=== PATIENT | female | born 1965 | race Caucasian/White ===

== ENCOUNTER 2020-09-26 | Emergency (ER) | payer BC ==
--- OUTSIDE RECORDS SUMMARY | 2020-09-26 13:57 | XMS REPORT | Summary of Care ---
:1965 Author Organization [facility] - [facility] Address [address] [place] [address] Care Team Providers Name Role Phone Pcp, Patient Does Not Have A Primary Care Provider +1-000-00 0-0000 Encounter Details Date Type Department Care Team Description 09/20/2020 Letter (Out) [facility] [address] Message s Doctor Unassigned, No [address] [facility] [place] [phone] [facility] [phone] [place] [address] Allergies Not on Filedocumented as of this encounter (statuses as of 09/20/2020) Medications Not on filedocumented as of this encounter (statuses as of 09/20/2020) Active Problems Not on filedocumented as of this encounter (statuses as of 09/20/2020) Social History Tobacco Use Types Packs/Day Years Used Date Never Assessed Sex Assigned at Date Recorded Not on file documented as of this encounter Last Filed Vital Signs Not on filedocumented in this encounter Plan of Treatment Date Type Specialty Care Team Description 09/20/2020 Urgent Care Family Medicine Milli Feliz, FN [address] [facility] [address] [place] [address] [phone] Arrived Provider, [facility] Health Maintenance Due Date Last Done Comments HEPATITIS C (HCV) SCREEN 1965 Depression Screening 1975 DTaP,Tdap,and Td Vaccines (1 - 1982 Tdap) PAP SMEAR 1984 Breast Cancer Screening (MAMMOGRAM) 2003 COLON CANCER SCREENING ANNUAL 2013 FIT/FOBT COLON CANCER SCREENING FIT DNA 2013 EVERY 3 YEARS COLON CANCER SCREENING 2013 SIGMOIDOSCOPY EVERY 5 YEARS COLONOSCOPY 2013 Colorectal Cancer Screening 2013 Zoster Recombinant Vaccine 2013 (SHINGRIX) (1 of 2) INFLUENZA VACCINE (#1) 2020 PNEUMOCOCCAL 0-64 YEARS COMBINED Aged Out No longer eligible based on SERIES patient's age to complete this topic documented as of this encounter Results Not on filedocumented in this encounter Insurance Payer Benefit Plan Subscriber ID Effective Dates Phone Address Type / Group BCBS OF [facility] [id number] 2020-Pres [phone] [address] P[place] [id number] [place] [address] documented as of this encounter
--- OUTSIDE RECORDS SUMMARY | 2020-09-26 13:57 | XMS REPORT | Continuity of Care Document ---
:1965 Author Organization [facility] t Address [address] [place] [address] Care Team Providers Name Role Phone Gama DURHAM, H Attending Clinician Pcp, Does Not Have A Attending Clinician Provider, Urgent Care Attending Clinician Unavailable Doctor Unassigned, Name Attending Clinician Unavailable Problems This patient has no known problems. Allergies, Adverse Reactions, Alerts This patient has no known allergies or adverse reactions. Medications This patient has no known medications. Procedures This patient has no known procedures. Encounters Start End Encounter Admission Attending Care Care Encounter Source Date/Time Date/Time Type Type Clinicians Facility Department ID 2020-09-24 2020-09-24 Letter GARO Malloy [id number] 00:00:00 00:00:00 (Out) Robert SEXTON [id number] [facility] [id number] 2020-09-22 2020-09-22 Telephone Pcp, [facility] [id number] 00:00:00 00:00:00 Patient Health [id number] Does Not [place] [id number] Have A Professio [phone] nal [address] 2020-09-20 2020-09-20 Urgent Provider, [facility] [id number] 09:36:00 10:22:03 Care [facility] [id number] Care [place] [id number] Professio [phone] nal [address] 2020-09-20 2020-09-20 Letter Doctor GARO [id number] 00:00:00 00:00:00 (Out) Unassigned, CARLIE [id number] [place] [facility] [id number] [id number] Results This patient has no known results.
--- OUTSIDE RECORDS SUMMARY | 2020-09-26 13:57 | XMS REPORT | Summary of Care ---
:1965 Author Organization [facility] - [facility] Address [address] [place] [address] Care Team Providers Name Role Phone Pcp, Patient Does Not Have A Primary Care Provider +1-000-00 0-0000 Reason for Visit Reason Comments Results Encounter Details Date Type Department Care Team Description 09/22/2020 Telephone [facility] Family Medicine Pcp, Patient Does Not Results - Johnathan Have A [address] [place] [address] Dr [address] [place] [address] [place] [address] Allergies No Known Allergiesdocumented as of this encounter (statuses as of 09/22/2020) Medications Medication Sig Dispensed Refills Start Date End Date Status amoxicillin-clavulana Take 1 tablet by 14 tablet 0 09/20/2020 09/27/2020 Active te 875-125 mg per mouth 2 (two) tabletIndications: times daily for 7 Acute non-recurrent days. maxillary sinusitis documented as of this encounter (statuses as of 09/22/2020) Active Problems No known active problemsdocumented as of this encounter (statuses as of 09/22/2020) Social History Tobacco Use Types Packs/Day Years Used Date Never Smoker Smokeless Tobacco: Never Used Sex Assigned at Date Recorded Not on file COVID-19 Exposure Response Date Recorded In the last month, have you been in contact with No / Unsure 09/20/2020 9:37 AM [employer] someone who was confirmed or suspected to have Coronavirus / COVID-19? documented as of this encounter Last Filed Vital Signs Not on filedocumented in this encounter Miscellaneous Notes Telephone Encounter - Brit Perez LVN - 09/22/2020 7:27 PM CSTLeft message to f/u with ortho. Gave number on VM. Can also F/U with PCP for further eval elephone Encounter - Chelo Leal - 09/22/2020 2:39 PM CSTPatient calling for covid results [phone] signed by Chelo Leal at 09/22/2020 2:39 PM CSTdocumented in this encounter Plan of Treatment Health Maintenance Due Date Last Done Comments [...] Phone Address Type / Group BCBS OF [facility] [id number] 2018-[place] [phone] [address] PPO/POS [place] [id number] [place] [address] documented as of this encounter
--- OUTSIDE RECORDS SUMMARY | 2020-09-26 13:57 | XMS REPORT | Summary of Care ---
:1965 Author Organization [facility] - [facility] Address [address] [place] [id number] Care Team Providers Name Role Phone Pcp, Patient Does Not Have A Primary Care Provider +[id number] 0-0000 Reason for Visit Reason Comments Headache 3 days RUNNY NOSE 3 days Encounter Details Date Type Department Care Team Description 09/20/2020 Urgent Care [facility] Milli Goldman, VISUAL EFFECTS ARTIST [address] [place] [address] [phone] Acute non-recurrent maxillary sinusitis (Primary Dx); Medicine - [place] Provider, [facility] Urgent Care Exposure to SARS-associated coronavirus [address] [place] [address] Allergies No Known Allergiesdocumented as of this encounter (statuses as of 09/20/2020) Medications Medication Sig Dispensed Refills Start Date End Date Status amoxicillin-clavulana Take 1 tablet by 14 tablet 0 09/20/2020 09/27/2020 Active te 875-125 mg per mouth 2 (two) tabletIndications: times daily for 7 Acute non-recurrent days. maxillary sinusitis documented as of this encounter (statuses as of 09/20/2020) Active Problems No known active problemsdocumented as of this encounter (statuses as of 09/20/2020) Social History Tobacco Use Types Packs/Day Years Used Date Never Smoker Smokeless Tobacco: Never Used Sex Assigned at Date Recorded Not on file COVID-19 Exposure Response Date Recorded In the last month, have you been in contact with No / Unsure 09/20/2020 9:37 AM [employer] someone who was confirmed or suspected to have Coronavirus / COVID-19? 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 Acute non- recurrent maxillary sinusitis - amoxicillin-clavulanate 875-125 mg per tablet; Take 1 tablet by mouth 2 (two) times daily for 7 days. Dispense: 14 tablet; Refill: 0 - counseled patient about at home care: Rest Raise head of bed Increase fluids -HYDRATION WITH CLEAR LIQUIDS Warm salt water gargles or CEPACOL sprays for sore throat. Breath humidified air (steam) SIPPING WARM DRINKS may help. Warm Compresses (if sinus pressure or pain). HAND HYGIENE (with alcohol gels or hand washing) Advised to take Tylenol or Ibuprofen as per label recommendation as needed for pain or fever Avoidance of cigarette smoke, alcoholic drinks, diving into deep water and air travel is useful. Irrigate your nose with normal saline moisture spray 2 or 3 times a day. You may use a spray, squeeze bottle, or nasal pot. Nasal Congestion (Stopped Up): Oxymetazoline HCl (Afrin, 4-Way, & more) 0.05 % nasal spray, 1 spray each nostril at bedtime. Limit to 5 nights. If use twice a day then limit to 3 days. - Advised to follow up with PCP, return to Urgent Care, or go to the nearest Emergency Department sooner for any new, worsening, persistent, or concerning symptoms 2. Exposure to SARS-associated coronavirus - COVID-19 (MOLECULAR TESTING NUCLEIC ACID AMPLIFICATION) - Quarantine until your COVID results are back Criteria met - Covid testing - pending. This test can take 2-3 days to be resulted. While the test is pending...Please socially isolate your self - do not go out to stores or out in public. We will contact you once we have the results. If you are negative - continue with symptomatic treatment. (see below) Patients who have positive results will be contacted by the health department to enforce quarantine measures and for additional community contact tracing. The Infection Control Department will also undertake evaluation of exposures in our healthcare facility. If symptoms worsen - please call your Primary Care Doctor - do not go into the clinic. Call first. Educated on the following at home care: - Discussed likely viral diagnosis and treatment plan with pt. - pt advised on frequent effective handwashing - pt advised to increase fluid intake , stay hydrated and get plenty of rest. - advised to have the pt take OTC to treat symptoms. - Pt advised to administer Tylenol as per label recommendation as needed for pain or fever - Cover mouth when coughing, wear mask - Stay in your own bedroom and use a separate bathroom - Keep at least 6 feet from you and others - Avoid sharing personal household items, dishes, glasses, cups, towels -Clean high traffic/touch areas daily. These include but not limited to: doorknobs, refrigerator/cabinet handles, phones, keyboards, tablets, light switches. - AVS and Written/handout materials appropriate to problem and teaching provided. - advised to go to the nearest Emergency Department sooner for any new, worsening, persistent, or concerning symptoms - Patient verbalized understanding of all instructions - Follow-up with PCP as needed, if no improvement EDUCATION: Handouts given: Patient educated on plan of care for visit, swabbing technique,risks and benefits of test and lengthof time to receive results. Verbal consent obtained to perform test. CDC Fact Sheet for patients nCoV Diagnostic Panel dated 12/15/2019 provided. "What to do if you are sick with COVID-19" CDC information guide reviewed with the patient and handout given to patient Education given to self quarantine until results are back. Will notify patient with results. Patient states understanding and all questions answered. Plan of care, goals and medications discussed with patient. Patient voices understanding. Barriers to care: none Ability to manage care: good FOLLOW UP: Pt advised to call 911 or go to the nearest Emergency Department sooner for any worsening, persistent, or concerning symptoms ER precautions given Plan of care, desired health behaviors, goals, and medication discussed with patient. Education resources provided and reviewed with AVS. Patient/guardian/family verbalized understanding & agrees to plan of care. Urgent Care precautions and follow up : 1. Return to clinic if your symptoms should worsen or fail to improve within 72 hours. 2. The care provided in the urgent care was for acute problems only. 3. You should follow up with your primary care provider within 72 hours. 4. Fill and take all your medications as prescribed. 5. Make sure you are staying adequately hydrated. MAY FOLLOW-UP WITH A PROVIDER OF YOUR CHOICE, SUCH : 1. A PHYSICIAN OF YOUR CHOICE OR, IF YOU WISH TO FOLLOW-UP WITHIN THE [facility], MAY TRY THESE OPTIONS (CLINIC APPOINTMENTS AVAILABLE ON BEXA-SY-JORK BASIS): 1. SCHEDULE AN APPOINTMENT ONLINE AT WWW[facility] 2. OR CALL THE [facility] ACCESS CENTER AT OR 3. OR CALL YOUR [facility] PHYSICIAN'S OFFICE DIRECTLY IF YOU ARE ALREADY AN ESTABLISHED [facility] PATIENT. After hours care nurse access center available by calling [phone] 24 hours 7 days per week. [facility] Patient Education Coronavirus Disease 2019 (COVID-19): Caring for Yourself and Others If you or a household member have symptoms of COVID-19, follow the guidelines below for preventing spread of the virus, and managing symptoms. If you think you have COVID-19 symptoms Stay home. Call your healthcare provider and tell them you have symptoms of COVID-19. Do this before going to any hospital or clinic. Follow your provider's instructions. You may be advised to isolate yourself at home. This is called self-isolation. Dont panic. Keep in mind that other illnesses can cause similar symptoms. Stay away from work, school, and public places. Limit physical contact with family members. Limitvisitors. Don't kiss anyone or share eating or drinking utensils. Clean surfaces you touch with disinfectant. This is to help prevent the virus from spreading. If you need to cough or sneeze, do it into a tissue. Then throw the tissue into the trash. If youdon't have tissues, cough or sneeze into the bend of your elbow. Dont share food or personal items with people in your household. This includes items like eating and drinking utensils, towels, and bedding. Wear a cloth face mask around other people. During a public health emergency, medical face masks may be reserved for healthcare workers. You may need to make a cloth face mask of your own. You can do this using a bandana, T-shirt, or other cloth. The [facility] has instructions on how to make a face mask.Wear the mask so that it covers both your nose and mouth. If you need to go to a hospital or clinic, expect that the healthcare staff will wear protective equipment such as masks, gowns, gloves, and eye protection. You may be put in a separate room. This is to prevent the possible virus from spreading. Tell the healthcare staff about recent travel. This includes local travel on public transport. Staff may need to find other people you have been in contact with. Follow all instructions the healthcare staff give you. If you have been diagnosed with COVID-19 Stay home and start self-isolation. Dont leave your home unless you need to get medical care. Don't go to work, school, or public areas. Don't use public transportation or taxis. Follow all instructions from your healthcare provider. Call your healthcare providers office before going. They can prepare and give you instructions. This will help prevent the virus from spreading. If you need to go to a hospital or clinic, expect that the healthcare staff will wear protective equipment such as masks, gowns, gloves, and eye protection. You may be put in a separate room. This is to prevent the possible virus from spreading. Wear a face mask. This is to protect other people from your germs. If you are not able to wear a mask, your caregivers should. During a public health emergency, medical face masks may be reserved for healthcare workers. You may need to make a cloth face mask of your own. You can do this using a bandana, T- shirt, or other cloth. The [facility] has instructions on how to make a face mask. Wear the mask so that it covers both your nose and mouth. Stay away from other people in your home. Have no contact with pets and animals. Dont share food or personal items with people in your household. This includes items like eating and drinking utensils, towels, and bedding. If you need to cough or sneeze, do it into a tissue. Then throw the tissue into the trash. If youdon't have tissues, cough or sneeze into the bend of your elbow. Wash your hands often. Self-care at home There is currently no medicine approved to prevent or treat the virus. Some experimental and other medicines are being tested against COVID-19. Other medicines used to treat other conditions are being looked at for COVID-19, but they are not currently approved to treat it. Current treatment is mainly aimed at helping your body while it fights the virus. This is known as supportive care. Take care of yourself at home by: Getting rest. This helps your body fight the illness. Staying hydrated. Drinking liquids is the best way to prevent dehydration. Try to drink 6 to 8 glasses of liquids every day, or as advised by your provider. Also check with your provider about whichfluids are best for you. Don't drink fluids that contain caffeine or alcohol. Taking iqql-jxh-ukjmoza (OTC) pain medicine. These are used to help ease pain and reduce fever. Follow your healthcare provider's instructions for which OTC medicine to use. If you've been in the hospital for suspected or confirmed COVID-19 and now are home, follow all of your healthcare team's instructions. This will include when it's OK to stop self-isolation. You may also get instructions on position changes to help your breathing, such as lying on your belly (prone positioning). If you've had confirmed COVID-19, your healthcare team may ask you to consider donating your plasma.This is called COVID-19 convalescent plasma donation. Plasma from people fully recovered from COVID-19 may contain antibodies to help fight COVID-19 in people who are currently seriously ill with the disease. Experts don't know the safety of COVID-19 convalescent plasma or how well it works. Research continues. The FDA has approved it for emergency use in certain people with serious or life-threatening COVID-19. Caring for a sick person Follow all instructions from healthcare staff. Wash your hands often. Wear protective clothing as advised. Make sure the sick person wears a mask. If they can't wear a mask, don't stay in the same room with the person. If you must be in the same room, wear a face mask. When wearing a mask, make sure thatit covers both the nose and mouth. Keep track of the sick persons symptoms. Clean home surfaces often with disinfectant. This includes phones, kitchen counters, fridge door handle, bathroom surfaces, and others. Dont let anyone share household items with the sick person. This includes eating and drinking tools, towels, sheets, or blankets. Clean fabrics and laundry thoroughly. Keep other people and pets away from the sick person. When you can stop self-isolation When you are sick with COVID-19, you should stay away from other people. This is called self-isolation. Your limits are different if you've had COVID-19 in the last 3 months but are fully recovered without symptoms and you have been exposed to someone with COVID-19. If you are symptom-free, you don't need to stay home away from others or be retested. The CDC doesn't recommend retesting unless you have symptoms of COVID-19 and your new symptoms can't be linked to another illness. Contact your healthcareprovider if you have any questions. If you develop symptoms, stay home. If you had COVID-19 over 3 months ago and have been exposed again, treat it like you've never had COVID-19 and stay home, limit your contact with others, call your provider, and monitor for symptoms. If you are normally healthy, the CDC does not advise retesting for COVID-19 with nose-throat swabs. You can stop self-isolation when all 3 of these are true: 1. You have had no fever for at least 24 hours. This means no fever without medicine that reduces fever, such as acetaminophen, for at least 24 hours. 2. Your symptoms such as cough or trouble breathing have improved. 3. It has been at least 10 days since your first symptoms started. Talk with your healthcare provider before you leave home. Tell them if the 3 things above are true for you. They may tell you its OK to leave home. In some cases, your state or local area may have specific advice. Your healthcare provider will tell you more. If you have a weak immune system and COVID-19, or if you've had severe COVID-19, your instructions on when to stop isolation will be somewhat different. Some conditions and treatments can cause a weak immune system. These include cancer treatment, bone marrow or organ transplants, and conditions such as HIV or other immune system disorders. You may be advised to stay home from 10 days to 20 days after your symptoms first started. Your healthcare provider may want to retest you for COVID-19. Follow your provider's instructions. When you return to public settings When you are well enough to go outside your home, consider the CDC's guidance on cloth face masks: The CDC advises all people over age 2 to wear cloth face masks in public settings when around people outside of their household, especially when it's hard to socially distance. For example, wear a face mask in populated places such as public transit, public protests and marches, and crowded stores,bars, and restaurants. Cloth masks may help prevent people who have COVID-19 form spreading the virus to others. Cloth masks are most likely to reduce COVID-19 spread when masks are widely used by people who are out in the public. Certain people should not wear a face covering. This includes: Children younger than 2 years old Anyone with a health, developmental, or mental health condition that can be made worse by wearinga mask Anyone who is unconscious or unable to remove the face covering without help. See the CDC's guidance on who should not wear a face mask. When to call your healthcare provider Call your healthcare provider right away if a sick person has any of these: If a sick person has any of these, call 911: Trouble breathing that gets worse Pain or pressure in chest that gets worse Blue tint to lips or face Fast or irregular heartbeat Confusion or trouble waking Fainting or loss of consciousness Coughing up blood Going home from the hospital If you were diagnosed with COVID-19 and were recently discharged from the hospital: Follow the instructions above for self-care and isolation. Follow the hospital healthcare teams specific instructions. Ask questions if anything is unclear to you. Write down answers so you remember them. Date last modified: 05/27/2020 [employer] last reviewed this educational content on 01/01/202019994842-4844 The [employer]. All rights reserved. This information is not intended as a substitute for professional medical care. Always follow your healthcare professional's instructions. STATION SUPERVISOR documented in this encounter Progress Notes Milli Feliz FNP - 09/20/2020 9:40 AM CST Cc: Chief Complaint Patient presents with Headache 3 days RUNNY NOSE 3 days Milli Noel is a 55 year old female presents with concern for worsening runny nose/congestion and headache for about 3 days. Some cough. She's been having allergy symptoms for more than a week. She's had sinus infection twice before and this feels similar. Intermittent low grade fever, TMAX 99.5. She's taking zyrtec and Tylenol with little improvement. Denies any sick contacts. Eating/drinking good.Denies any chills or body aches. Sinus Problem Pain details: Location: Maxillary Quality: Aching, dull and pressure Severity: Moderate Duration: 3 days Timing: Intermittent Duration: 1 week Progression: Worsening Chronicity: New Context: recent URI Relieved by: Nothing Worsened by: Nothing Ineffective treatments: Saline sprays Associated symptoms: chills, congestion, cough, fatigue, fever, headaches, hoarse voice, mouth breathing, rhinorrhea and sneezing Associated symptoms: no nausea, no shortness of breath, no snoring, no sore throat, no swollen glands, no tooth pain, no vertigo, no vomiting and no wheezing Congestion: Location: Nasal Interferes with sleep: yes Interferes with eating/drinking: yes Cough: Cough characteristics: Dry Sputum characteristics: Clear Severity: Mild Onset quality: Sudden Duration: 1 week Timing: Intermittent Progression: Unchanged Chronicity: New Fatigue: Severity: Mild Duration: 3 days Timing: Intermittent Progression: Unchanged Fever: Duration: 2 days Timing: Intermittent Temp source: Subjective Progression: Unchanged Risk factors: no asthma, no COPD and no diabetes Allergies Milli has no allergies on file. Medications No outpatient medications prior to visit. No facility-administered medications prior to visit. Histories History reviewed. No pertinent past medical history. History reviewed. No pertinent surgical history. Social History Socioeconomic History Marital status: Spouse name: Not on file Number of children: Not on file Years of education: Not on file Highest education level: Not on file Occupational History Not on file Social Needs Financial resource strain: Not on file Food insecurity Worry: Not on file Inability: Not on file Transportation needs Medical: Not on file Non-medical: Not on file Tobacco Use Smoking status: Never Smoker Smokeless tobacco: Never Used Substance and Sexual Activity Alcohol use: Not on file Drug use: Not on file Sexual activity: Not on file Lifestyle Physical activity Days per week: Not on file Minutes per session: Not on file Stress: Not on file Relationships Social connections Talks on phone: Not on file Gets together: Not on file Attends baptist service: Not on file Active member of club or organization: Not on file Attends meetings of clubs or organizations: Not on file Relationship status: Not on file Intimate partner violence Fear of current or ex partner: Not on file Emotionally abused: Not on file Physically abused: Not on file Forced sexual activity: Not on file Other Topics Concern Not on file Social History Narrative Not on file History reviewed. No pertinent family history. Review of Systems Constitutional: Positive for chills, fatigue and fever. Negative for activity change and appetite change. HENT: Positive for congestion, hoarse voice, postnasal drip, rhinorrhea and sneezing. Negative for sore throat. Respiratory: Positive for cough. Negative for snoring, shortness of breath, wheezing and stridor. Gastrointestinal: Negative for diarrhea, nausea and vomiting. Musculoskeletal: Negative for myalgias. Skin: Negative for rash. Neurological: Positive for headaches. Negative for dizziness, vertigo and weakness. All other systems reviewed and are negative. Vital Signs BP (!) 157/84 | Pulse 64 | Temp 37 C (98.6 F) (Oral) | Resp 18 | Ht 5' 7" (1.702 m) | Wt 145 lb (65.8 kg) | SpO2 98% | BMI 22.71 kg/m Physical Exam Vitals signs and nursing note reviewed. Constitutional: Appearance: She is well-developed. HENT: Head: Normocephalic and atraumatic. Right Ear: Tympanic membrane, ear canal and external ear normal. Left Ear: Tympanic membrane, ear canal and external ear normal. Nose: Nasal tenderness, mucosal edema, congestion and rhinorrhea present. Right Sinus: Maxillary sinus tenderness present. No frontal sinus tenderness. Left Sinus: Maxillary sinus tenderness present. No frontal sinus tenderness. Eyes: Conjunctiva/sclera: Conjunctivae normal. Neck: Musculoskeletal: Normal range of motion and neck supple. Cardiovascular: Rate and Rhythm: Normal rate and regular rhythm. Heart sounds: Normal heart sounds. No murmur. No friction rub. No gallop. Pulmonary: Effort: Pulmonary effort is normal. No accessory muscle usage or respiratory distress. Breath sounds: Normal breath sounds. No decreased breath sounds, wheezing, rhonchi or rales. Musculoskeletal: Normal range of motion. Skin: General: Skin is warm and dry. Findings: No rash. Neurological: Mental Status: She is alert and oriented to person, place, and time. Psychiatric: Behavior: Behavior normal. Assessment/Plan Milli Noel is a 55 year old female presents with concern for runny nose and headache for about 3 days. 1. Acute non-recurrent maxillary sinusitis - amoxicillin-clavulanate 875-125 mg per tablet; Take 1 tablet by mouth 2 (two) times daily for 7 days. Dispense: 14 tablet; Refill: 0 - counseled patient about at home care: Rest Raise head of bed Increase fluids -HYDRATION WITH CLEAR LIQUIDS Warm salt water gargles or CEPACOL sprays for sore throat. Breath humidified air (steam) SIPPING WARM DRINKS may help. Warm Compresses (if sinus pressure or pain). HAND HYGIENE (with alcohol gels or hand washing) Advised to take Tylenol or Ibuprofen as per label recommendation as needed for pain or fever Avoidance of cigarette smoke, alcoholic drinks, diving into deep water and air travel is useful. Irrigate your nose with normal saline moisture spray 2 or 3 times a day. You may use a spray, squeeze bottle, or nasal pot. Nasal Congestion (Stopped Up): Oxymetazoline HCl (Afrin, 4-Way, & more) 0.05 % nasal spray, 1 spray each nostril at bedtime. Limit to 5 nights. If use twice a day then limit to 3 days. - Advised to follow up with PCP, return to Urgent Care, or go to the nearest Emergency Department sooner for any new, worsening, persistent, or concerning symptoms 2. Exposure to SARS-associated coronavirus - COVID-19 (MOLECULAR TESTING NUCLEIC ACID AMPLIFICATION) - Quarantine until your COVID results are back Criteria met - Covid testing - pending. This test can take 2-3 days to be resulted. While the test is pending...Please socially isolate your self - do not go out to stores or out in public. We will contact you once we have the results. If you are negative - continue with symptomatic treatment. (see below) Patients who have positive results will be contacted by the health department to enforce quarantine measures and for additional community contact tracing. The Infection Control Department will also undertake evaluation of exposures in our healthcare facility. If symptoms worsen - please call your Primary Care Doctor - do not go into the clinic. Call first. Educated on the following at home care: - Discussed likely viral diagnosis and treatment plan with pt. - pt advised on frequent effective handwashing - pt advised to increase fluid intake , stay hydrated and get plenty of rest. - advised to have the pt take OTC to treat symptoms. - Pt advised to administer Tylenol as per label recommendation as needed for pain or fever - Cover mouth when coughing, wear mask - Stay in your own bedroom and use a separate bathroom - Keep at least 6 feet from you and others - Avoid sharing personal household items, dishes, glasses, cups, towels -Clean high traffic/touch areas daily. These include but not limited to: doorknobs, refrigerator/cabinet handles, phones, keyboards, tablets, light switches. - AVS and Written/handout materials appropriate to problem and teaching provided. - advised to go to the nearest Emergency Department sooner for any new, worsening, persistent, or concerning symptoms - Patient verbalized understanding of all instructions - Follow-up with PCP as needed, if no improvement EDUCATION: Handouts given: Patient educated on plan of care for visit, swabbing technique,risks and benefits of test and lengthof time to receive results. Verbal consent obtained to perform test. CDC Fact Sheet for patients nCoV Diagnostic Panel dated 12/15/2019 provided. "What to do if you are sick with COVID-19" CDC information guide reviewed with the patient and handout given to patient Education given to self quarantine until results are back. Will notify patient with results. Patient states understanding and all questions answered. Plan of care, goals and medications discussed with patient. Patient voices understanding. Barriers to care: none Ability to manage care: good FOLLOW UP: Pt advised to call 911 or go to the nearest Emergency Department sooner for any worsening, persistent, or concerning symptoms ER precautions given Plan of care, desired health behaviors, goals, and medication discussed with patient. Education resources provided and reviewed with AVS. Patient/guardian/family verbalized understanding & agrees to plan of care. Urgent Care precautions and follow up : 1. Return to clinic if your symptoms should worsen or fail to improve within 72 hours. 2. The care provided in the urgent care was for acute problems only. 3. You should follow up with your primary care provider within 72 hours. 4. Fill and take all your medications as prescribed. 5. Make sure you are staying adequately hydrated. MAY FOLLOW-UP WITH A PROVIDER OF YOUR CHOICE, SUCH : 1. A PHYSICIAN OF YOUR CHOICE OR, IF YOU WISH TO FOLLOW-UP WITHIN THE [facility], MAY TRY THESE OPTIONS (CLINIC APPOINTMENTS AVAILABLE ON [id number] BASIS): 1. SCHEDULE AN APPOINTMENT ONLINE AT [email or web address] 2. OR CALL THE [facility] ACCESS CENTER AT OR 3. OR CALL YOUR [facility] PHYSICIAN'S OFFICE DIRECTLY IF YOU ARE ALREADY AN ESTABLISHED [facility] PATIENT. After hours care nurse access center available by calling [phone] 24 hours 7 days per week. [facility] documented in this encounter Plan of Treatment Name Type Priority Associated Diagnoses Order S pedrito COVID-19 (MOLECULAR LAB Routine Exposure to Expected : 09/20/2020, TESTING SARS-associated Expires: 021 NUCLEIC ACID coronavirus AMPLIFICATION) Health Maintenance Due Date Last Done Comments [...] Results Not on filedocumented in this encounter Visit Diagnoses Diagnosis Acute non-recurrent maxillary sinusitis - Primary Exposure to SARS-associated coronavirus documented in this encounter Additional Health Concerns Infection Onset Date Last Indicated Resolved Time COVID-19 Rule Out 09/20/2020 09/20/2020 documented as of this encounter Insurance Payer Benefit Plan Subscriber ID Effective Dates Phone Address Type / Group BCBS OF [facility] [id number] 2020-Pres [phone] [address] PPO/POS [place] ent [id number] [place] [address] documented as of this encounter
--- OUTSIDE RECORDS SUMMARY | 2020-09-26 13:57 | XMS REPORT | Summary of Care ---
:1965 Author Organization [facility] [place] Address [address] [place] [id number] Care Team Providers Name Role Phone Pcp, Patient Does Not Have A Primary Care Provider [id number] Encounter Details Date Type Department Care Team Description 09/24/2020 Letter (Out) ACCESS CENTER Robert Malloy MD [address] [place] [phone] [place], [place] [id number] Allergies No Known Allergiesdocumented as of this encounter (statuses as of 09/24/2020) Medications Medication Sig Dispensed Refills Start Date End Date Status amoxicillin-clavulana Take 1 tablet by 14 tablet 0 09/20/2020 09/27/2020 Active te 875-125 mg per mouth 2 (two) tabletIndications: times daily for 7 Acute non-recurrent days. maxillary sinusitis documented as of this encounter (statuses as of 09/24/2020) Active Problems No known active problemsdocumented as of this encounter (statuses as of 09/24/2020) Social History Tobacco Use Types Packs/Day Years Used Date Never Smoker Smokeless Tobacco: Never Used Sex Assigned at Date Recorded Not on file COVID-19 Exposure Response Date Recorded In the last month, have you been in contact with No / Unsure 09/20/2020 9:37 AM [employer] someone who was confirmed or suspected to have Coronavirus / COVID-19? documented as of this encounter Last Filed Vital Signs Not on filedocumented in this encounter Plan of Treatment Health [...] Phone Address Type / Group [facility] [id number] 2018-[place] [phone] [address] PPO/POS [place] t [id number] [place] [address] documented as of this encounter
== END 2020-09-26 14:51 | disposition left against medical advice (07) ==